=== PATIENT | female | born 1960 | race Caucasian/White ===

== ENCOUNTER 2016-10-15 20:59 | Day surgery (SDCO) | payer OTHER ==
[~2016-10-15] VITALS: Ht 157.5 cm; Wt 70.8 kg
[2016-10-15 21:39] LABS: BASOPHIL 0.7 % (0-2); HCT 38.6 % (37.0-47.0); HGB 13.2 g/dl (12.5-16.0); LYMPHOCYTE 40.6 % (15-48); MCH 31.1 pg (25.0-31.0); MCHC 34.2 g/dL (32.0-36.0); MCV 90.8 fL (78.0-100.0); MONOCYTE 8.5 % (0-12); MPV 8.5 fL (6.0-9.5); NEUTROPHIL 47.2 % (41-80); PLT 352 K/uL (150-400); RBC 4.25 M/uL (4.20-5.40); RDW 13.4 % (11.5-14.0); WBC 9.5 K/uL (4.0-10.5)
[2016-10-15 21:47] LABS: INR 0.94 (0.9-1.2); PROTHROMBIN TIME 12.2 SECONDS (11.7-14.0); PTT 28.3 SECONDS (23.2-31.4)
[2016-10-15 21:58] LABS: ALBUMIN 4.3 g/dL (3.5-5.0); BILIRUBIN - TOTAL 0.2 mg/dL (0.1-1.0); CKMB 1.08 ng/mL (0.97-4.94); CREATININE 0.6 mg/dL (0.5-1.0); GLOBULIN (CALCULATION) 3.3 g/dL (2.2-4.2); MAGNESIUM 2.18 mg/dL (1.40-2.10); MYOGLOBIN 21 ng/mL (26-65); POTASSIUM 3.6 mmol/L (3.5-5.1); PRO-BNP 46 pg/mL (0-125); TOTAL PROTEIN 7.6 g/dL (6.4-8.3); TROPONIN T < 0.010 ng/mL
[2016-10-15 22:16] LABS: BILIRUBIN NEGATIVE (NEGATIVE); BLOOD NEGATIVE Ery/uL (NEGATIVE); CLARITY CLEAR (CLEAR); COLOR STRAW (YELLOW); GLUCOSE (U) NORMAL (NORMAL); KETONE (U) NEGATIVE (NEGATIVE); LEUKOCYTES NEGATIVE Leu/uL (NEGATIVE); NITRITE NEGATIVE (NEGATIVE); PROTEIN NEGATIVE (NEGATIVE); SPECIFIC GRAVITY <=1.005 (1.001-1.030); UROBILINOGEN 0.2 mg/dL (0.2-1.0); pH 6.5 (5.0-9.0)
[2016-10-15 22:34] LABS: FT4 (FREE T4) 0.834 ng/dL (0.93-1.70); TSH (THYROID STIM HORMONE) 2.41 uIU/mL (0.270-4.200)
[2016-10-16 03:35] LABS: BASOPHIL 0.5 % (0-2); EOSINOPHIL 4.7 % (0-5); HCT 34.1 % (37.0-47.0); HGB 11.5 g/dl (12.5-16.0); LYMPHOCYTE 53.8 % (15-48); MCH 31.3 pg (25.0-31.0); MCHC 33.7 g/dL (32.0-36.0); MCV 92.7 fL (78.0-100.0); MONOCYTE 7.2 % (0-12); MPV 8.1 fL (6.0-9.5); NEUTROPHIL 33.8 % (41-80); PLT 303 K/uL (150-400); RBC 3.68 M/uL (4.20-5.40); RDW 13.6 % (11.5-14.0); WBC 9.6 K/uL (4.0-10.5)
[2016-10-16 03:54] LABS: ALBUMIN 3.8 g/dL (3.5-5.0); BILIRUBIN - TOTAL 0.2 mg/dL (0.1-1.0); CREATININE 0.6 mg/dL (0.5-1.0); GLOBULIN (CALCULATION) 2.8 g/dL (2.2-4.2); POTASSIUM 3.8 mmol/L (3.5-5.1); TOTAL PROTEIN 6.6 g/dL (6.4-8.3)
--- NOTE | 2016-10-16 08:15 | NUR ---
REPORT GIVEN TO DONTAE AT [facility] CADENCE ANALYST. 0830 [facility] HERE;RPT GIVEN TO PROTECTION MANAGER;PT TRANSFERRED FROM BED TO STRETCHER W/O INCIDENT;PT TRANSFERRED AT THIS TIME
--- NOTE | 2016-10-16 16:13 | NUR ---
10/16/16 Areferral for a social work assessment was received following patient's transfer to another hospital.
== END 2016-10-16 08:48 | disposition other institution (70) ==
LOC: FER 20:59 → FTCU 22:35
PROVIDERS: Emergency Medicine Emergency Medical Services; ADMIT Internal Medicine
DX: R07.9 Chest pain, unspecified (principal); I10 Essential (primary) hypertension; G89.29 Other chronic pain; G62.9 Polyneuropathy, unspecified; F41.1 Generalized anxiety disorder; K21.9 Gastro-esophageal reflux disease without esophagitis; F17.210 Nicotine dependence, cigarettes, uncomplicated; Z90.710 Acquired absence of both cervix and uterus; Z98.890 Other specified postprocedural states; Z88.5 Allergy status to narcotic agent; Z88.6 Allergy status to analgesic agent; Z79.818 Long term (current) use of other agents affecting estrogen receptors and estrogen levels; Z79.899 Other long term (current) drug therapy
CPT/HCPCS: 36415; 71010; 80053; 80061; 81003; 82550; 82553; 83036; 83735; 83874; 83880; 84439; 84443; 84484; 85025; 85610; 85730; 93005; 96372; G0378; J2270; J2405

== ENCOUNTER 2020-07-24 18:12 | Emergency (ER) | payer OTHER ==
[2020-07-24 19:59] LABS: BASOPHIL 0.7 % (0-2); EOSINOPHIL 4.1 % (0-5); HCT 41.4 % (37.0-47.0); HGB 13.3 g/dl (12.5-16.0); LYMPHOCYTE 36.2 % (15-48); MCH 30.5 pg (25.0-31.0); MCHC 32.1 g/dL (32.0-36.0); MONOCYTE 6.7 % (0-12); MPV 9.1 fL (6.0-9.5); NEUTROPHIL 51.9 % (41-80); NRBC 0; PLT 358 K/uL (150-400); RBC 4.36 M/uL (4.20-5.40); RDW 13.7 % (11.5-14.0)
[2020-07-24 20:13] LABS: ALBUMIN 3.5 g/dL (3.4-5.0); BILIRUBIN - TOTAL 0.2 mg/dL (0.2-1.0); BUN/CREAT RATIO (CALC) 20.3 RATIO; CREATININE 0.59 mg/dL (0.51-0.95); GLOBULIN (CALCULATION) 4.3 g/dL; TOTAL PROTEIN 7.8 g/dL (6.4-8.2)
[2020-07-24] MEDS ORDERED: CLEOCIN300 MG PO (22:00)
== END 2020-07-24 22:49 | disposition home or self-care (01) ==
LOC: FER 18:12
PROVIDERS: Emergency Medicine Emergency Medical Services
DX: M79.652 Pain in left thigh (principal); I10 Essential (primary) hypertension; F17.210 Nicotine dependence, cigarettes, uncomplicated; Z85.828 Personal history of other malignant neoplasm of skin; Z88.5 Allergy status to narcotic agent; Z88.6 Allergy status to analgesic agent
CPT/HCPCS: 36415; 80053; 85025; 86140; 99283; J1885; J2270; J2405

== ENCOUNTER 2020-11-28 18:53 | Emergency (ER) | payer OTHER ==
[~2020-11-28 18:53] MED LIST: CLEOCIN300 MG PO
[2020-11-28 21:13] LABS: HCT 40.3 % (37.0-47.0); HGB 12.9 g/dl (12.5-16.0); LYMPHOCYTE 40.7 % (15-48); MCV 93.7 fL (78.0-100.0); MONOCYTE 6.5 % (0-12); MPV 8.7 fL (6.0-9.5); NEUTROPHIL 45.4 % (41-80); NRBC 0; PLT 343 K/uL (150-400); RDW 13.7 % (11.5-14.0); WBC 9.6 K/uL (4.0-10.5)
[2020-11-28 21:17] LABS: INR 1.06 (0.9-1.2); PROTHROMBIN TIME 13.2 SECONDS (11.8-13.4); PTT 28.8 SECONDS (24.4-34.7)
[2020-11-28 21:32] LABS: ALBUMIN 3.9 g/dL (3.4-5.0); BILIRUBIN - TOTAL 0.2 mg/dL (0.2-1.0); BUN/CREAT RATIO (CALC) 17.9 RATIO; CREATININE 0.67 mg/dL (0.51-0.95); GLOBULIN (CALCULATION) 4.3 g/dL; MAGNESIUM 2.5 mg/dL (1.8-2.4); POTASSIUM 3.5 mmol/L (3.5-5.1); PRO-BNP 27 pg/mL (<125); TOTAL PROTEIN 8.2 g/dL (6.4-8.2)
[2020-11-28 22:20] LABS: BILIRUBIN NEGATIVE (NEGATIVE); BLOOD NEGATIVE Ery/uL (NEGATIVE); CLARITY CLEAR (CLEAR); COLOR YELLOW (YELLOW); GLUCOSE (U) NORMAL (NORMAL); LEUKOCYTES NEGATIVE Leu/uL (NEGATIVE); NITRITE NEGATIVE (NEGATIVE); PROTEIN NEGATIVE (NEGATIVE); SPECIFIC GRAVITY <=1.005 (1.001-1.030); UROBILINOGEN 0.2 mg/dL (0.2-1.0)
[2020-11-28] MEDS ORDERED: NORCO 5-325 TA1 EACH PO (23:57)
[2020-11-28] MEDS ORDERED: BACTROBAN NASAL1 GM TOP (23:57)
[2020-11-28] MEDS ORDERED: ZANAFLEX2 MG PO (23:59)
== END 2020-11-29 00:10 | disposition home or self-care (01) ==
LOC: FER 18:53
PROVIDERS: Emergency Medicine
DX: R07.89 Other chest pain (principal); S60.561A Insect bite (nonvenomous) of right hand, initial encounter; I51.9 Heart disease, unspecified; F17.200 Nicotine dependence, unspecified, uncomplicated; Z98.890 Other specified postprocedural states; W57.XXXA Bitten or stung by nonvenomous insect and other nonvenomous arthropods, initial encounter; Z79.899 Other long term (current) drug therapy
CPT/HCPCS: 36415; 71045; 80053; 81003; 83690; 83735; 83880; 84145; 84484; 85025; 85379; 85610; 85730; 93005; J1170; J2405; J7030

== ENCOUNTER 2020-12-30 21:19 | Inpatient (IN) | payer OTHER ==
[~2020-12-30] VITALS: Ht 157.5 cm; Wt 62.1 kg
[~2020-12-30 21:19] MED LIST changes: +BACTROBAN NASAL1 GM TOP; +NORCO 5-325 TA1 EACH PO; +ZANAFLEX2 MG PO
[2020-12-30 23:38] LABS: BASOPHIL 0.2 % (0-2); EOSINOPHIL 0 % (0-5); HCT 44.3 % (37.0-47.0); HGB 14.2 g/dl (12.5-16.0); LYMPHOCYTE 17.7 % (15-48); MCH 29.8 pg (25.0-31.0); MCHC 32.1 g/dL (32.0-36.0); MCV 92.9 fL (78.0-100.0); MONOCYTE 6.7 % (0-12); MPV 9.5 fL (6.0-9.5); NEUTROPHIL 74.6 % (41-80); NRBC 0.2; PLT 316 K/uL (150-400); RBC 4.77 M/uL (4.20-5.40); RDW 15.1 % (11.5-14.0); WBC 9.3 K/uL (4.0-10.5)
[2020-12-31 00:07] LABS: PRO-BNP 162 pg/mL (<125)
[2020-12-31 00:15] LABS: LACTIC ACID 1.6 mmol/L (0.4-1.9)
[2020-12-31 00:16] LABS: ALBUMIN 2.6 g/dL (3.4-5.0); ALKALINE PHOSHATASE 103 U/L (46-116); ALT 74 U/L (14-59); AST 268 U/L (15-37); BILIRUBIN - TOTAL 0.4 mg/dL (0.2-1.0); BUN 37 mg/dL (7-18); BUN/CREAT RATIO (CALC) 30.8 RATIO; C-REACTIVE PROTEIN >18.00 mg/dL (<=0.90); CHLORIDE 103 mmol/L (98-107); CO2 (BICARBONATE) 29 mmol/L (21-32); GLOBULIN (CALCULATION) 5.4 g/dL; GLUCOSE 127 mg/dL (74-106); LDH 1145 U/L (81-234); MAGNESIUM 2.9 mg/dL (1.8-2.4); POTASSIUM 3.6 mmol/L (3.5-5.1)
[2020-12-31 02:40] LABS: BILIRUBIN NEGATIVE (NEGATIVE); BLOOD 2+ Ery/uL (NEGATIVE); CLARITY HAZY (CLEAR); COLOR YELLOW (YELLOW); GLUCOSE (U) NORMAL (NORMAL); LEUKOCYTES NEGATIVE Leu/uL (NEGATIVE); NITRITE NEGATIVE (NEGATIVE); PROTEIN 1+ mg/dL (NEGATIVE); UROBILINOGEN 0.2 mg/dL (0.2-1.0)
[2020-12-31 02:46] LABS: AMORPHOUS URATES CRYSTALS TRACE; BACTERIA 1+
[2020-12-31 06:01] LABS: BUN/CREAT RATIO (CALC) 33.7 RATIO; CREATININE 0.95 mg/dL (0.51-0.95); MAGNESIUM 2.8 mg/dL (1.8-2.4); PHOSPHORUS 2.8 mg/dL (2.6-4.7)
[2020-12-31] MEDS ORDERED: GABAPENTIN800 MG PO (17:36)
[2020-12-31] MEDS ORDERED: NORTRIPTYLINE H75 MG PO (17:37)
[2020-12-31] MEDS ORDERED: CELEXA20 MG PO (17:37)
[2020-12-31] MEDS ORDERED: HYDROCHLOROTH12.5 MG PO (17:38)
[2020-12-31] MEDS ORDERED: ABILIFY10 MG PO (17:38)
[2020-12-31] MEDS ORDERED: DILTIAZEM 12HR60 MG PO (17:39)
[2020-12-31] MEDS ORDERED: CLONAZEPAM 1MG T1 MG PO (17:40)
[2020-12-31] MEDS ORDERED: BENTYL10 MG PO (17:41)
[2020-12-31] MEDS ORDERED: HYDROCODON-ACE1 EAC2 PO (17:41)
[2020-12-31] MEDS ORDERED: AMITRIPTYLINE H50 MG PO (17:42)
[2021-01-01 04:06] LABS: BASOPHIL 0.3 % (0-2); EOSINOPHIL 0 % (0-5); HCT 37.4 % (37.0-47.0); HGB 11.8 g/dl (12.5-16.0); LYMPHOCYTE 16.7 % (15-48); MCH 29.8 pg (25.0-31.0); MCHC 31.6 g/dL (32.0-36.0); MCV 94.4 fL (78.0-100.0); MONOCYTE 4.7 % (0-12); MPV 9.7 fL (6.0-9.5); NEUTROPHIL 76.7 % (41-80); NRBC 0.6; PLT 325 K/uL (150-400); RBC 3.96 M/uL (4.20-5.40); RDW 15.5 % (11.5-14.0); WBC 10.9 K/uL (4.0-10.5)
[2021-01-01 04:26] LABS: BUN/CREAT RATIO (CALC) 42.5 RATIO; C-REACTIVE PROTEIN 11.7 mg/dL (<=0.90); CREATININE 0.73 mg/dL (0.51-0.95); POTASSIUM 3.3 mmol/L (3.5-5.1)
[2021-01-01 04:30] LABS: PRO-BNP 690 pg/mL (<125)
[2021-01-05 06:42] LABS: BASOPHIL 0.2 % (0-2); EOSINOPHIL 0 % (0-5); HGB 11.3 g/dl (12.5-16.0); LYMPHOCYTE 8.2 % (15-48); MCH 29.7 pg (25.0-31.0); MCHC 31.4 g/dL (32.0-36.0); MCV 94.7 fL (78.0-100.0); MONOCYTE 4.9 % (0-12); NEUTROPHIL 84.6 % (41-80); NRBC 0; PLT 342 K/uL (150-400); RDW 15.2 % (11.5-14.0); WBC 11.8 K/uL (4.0-10.5)
[2021-01-05 07:43] LABS: ALBUMIN 2.2 g/dL (3.4-5.0); BILIRUBIN - TOTAL 0.3 mg/dL (0.2-1.0); BUN/CREAT RATIO (CALC) 65.3 RATIO; C-REACTIVE PROTEIN 3.9 mg/dL (<=0.90); CREATININE 0.49 mg/dL (0.51-0.95); GLOBULIN (CALCULATION) 4.2 g/dL; MAGNESIUM 2.7 mg/dL (1.8-2.4); POTASSIUM 3.9 mmol/L (3.5-5.1); TOTAL PROTEIN 6.4 g/dL (6.4-8.2)
[2021-01-06 09:33] LABS: HCT 39.3 % (37.0-47.0); HGB 12.2 g/dl (12.5-16.0); MCH 29.7 pg (25.0-31.0); MCV 95.6 fL (78.0-100.0); MPV 9.9 fL (6.0-9.5); RBC 4.11 M/uL (4.20-5.40); RDW 14.9 % (11.5-14.0); WBC 11.5 K/uL (4.0-10.5)
[2021-01-06 09:50] LABS: BUN/CREAT RATIO (CALC) 57.8 RATIO; CREATININE 0.45 mg/dL (0.51-0.95); POTASSIUM 3.9 mmol/L (3.5-5.1)
[2021-01-06 16:15] LABS: BILIRUBIN NEGATIVE (NEGATIVE); BLOOD 3+ Ery/uL (NEGATIVE); CLARITY HAZY (CLEAR); COLOR YELLOW (YELLOW); GLUCOSE (U) NORMAL (NORMAL); LEUKOCYTES 1+ Leu/uL (NEGATIVE); NITRITE POSITIVE (NEGATIVE); PROTEIN 1+ mg/dL (NEGATIVE); SPECIFIC GRAVITY 1.025 (1.001-1.030); UROBILINOGEN 0.2 mg/dL (0.2-1.0)
[2021-01-06 16:31] LABS: BACTERIA 2+; URINARY RBC TNTC; URINARY WBC TNTC
[2021-01-07 06:33] LABS: BASOPHIL 0 % (0-2); EOSINOPHIL 0 % (0-5); HGB 10.7 g/dl (12.5-16.0); LYMPHOCYTE 10.8 % (15-48); MCH 29.7 pg (25.0-31.0); MCHC 31.5 g/dL (32.0-36.0); MCV 94.4 fL (78.0-100.0); MONOCYTE 3.4 % (0-12); MPV 10.2 fL (6.0-9.5); NEUTROPHIL 84.4 % (41-80); NRBC 0; PLT 356 K/uL (150-400); RDW 14.6 % (11.5-14.0); WBC 7.7 K/uL (4.0-10.5)
[2021-01-07 07:26] LABS: BUN/CREAT RATIO (CALC) 53.8 RATIO; C-REACTIVE PROTEIN 3.6 mg/dL (<=0.90); CREATININE 0.39 mg/dL (0.51-0.95); MAGNESIUM 2.4 mg/dL (1.8-2.4)
[2021-01-08 04:34] LABS: BASOPHIL 0.4 % (0-2); HCT 39.2 % (37.0-47.0); HGB 12.6 g/dl (12.5-16.0); LYMPHOCYTE 12.7 % (15-48); MCH 29.8 pg (25.0-31.0); MCHC 32.1 g/dL (32.0-36.0); MCV 92.7 fL (78.0-100.0); MONOCYTE 4.6 % (0-12); MPV 10.6 fL (6.0-9.5); PLT 387 K/uL (150-400); RBC 4.23 M/uL (4.20-5.40); RDW 13.9 % (11.5-14.0); WBC 8.42 K/uL (4.0-10.5)
[2021-01-08 04:41] LABS: NEUTROPHIL 80.5 % (41-80)
[2021-01-08 04:56] LABS: BUN/CREAT RATIO (CALC) 54.1 RATIO; CREATININE 0.37 mg/dL (0.51-0.95); POTASSIUM 4.4 mmol/L (3.5-5.1)
[2021-01-09 03:59] LABS: BASOPHIL 0.1 % (0-2); HGB 11.7 g/dl (12.5-16.0); LYMPHOCYTE 9.7 % (15-48); MCH 29.8 pg (25.0-31.0); MCHC 32.5 g/dL (32.0-36.0); MCV 91.6 fL (78.0-100.0); NEUTROPHIL 83.5 % (41-80); PLT 326 K/uL (150-400); RBC 3.93 M/uL (4.20-5.40); RDW 13.1 % (11.5-14.0); WBC 8.88 K/uL (4.0-10.5)
[2021-01-09 04:42] LABS: BUN/CREAT RATIO (CALC) 37.2 RATIO; C-REACTIVE PROTEIN 1.3 mg/dL (<=0.90); CREATININE 0.43 mg/dL (0.51-0.95); MAGNESIUM 2.1 mg/dL (1.8-2.4); POTASSIUM 3.9 mmol/L (3.5-5.1)
[2021-01-11] MEDS ORDERED: MEDROL 4MG DOSEP4 MG PO (10:39)
== END 2021-01-11 12:30 | disposition home or self-care (01) | DRG 177 ==
LOC: FER 21:19 → FTCU 12-31 10:32
PROVIDERS: Emergency Medicine; Internal Medicine; ADMIT Allergy & Immunology Allergy
PROC: 8E0ZXY6 Isolation (ICD-10-PCS; principal; 2020-12-31)
PROC: XW033E5 Introduction of Remdesivir Anti-infective into Peripheral Vein, Percutaneous Approach, New Technology Group 5 (ICD-10-PCS; 2020-12-31)
PROC: XW0DXM6 Introduction of Baricitinib into Mouth and Pharynx, External Approach, New Technology Group 6 (ICD-10-PCS; 2020-12-31)
PROC: 5A0955A Assistance with Respiratory Ventilation, Greater than 96 Consecutive Hours, High Flow/Velocity Cannula (ICD-10-PCS; 2020-12-31)
PROC: 05HY33Z Insertion of Infusion Device into Upper Vein, Percutaneous Approach (ICD-10-PCS; 2021-01-09)
DX: U07.1 COVID-19 (principal); J12.82 Pneumonia due to coronavirus disease 2019; T83.518A Infection and inflammatory reaction due to other urinary catheter, initial encounter; N39.0 Urinary tract infection, site not specified; J96.01 Acute respiratory failure with hypoxia; G93.41 Metabolic encephalopathy; I10 Essential (primary) hypertension; F17.200 Nicotine dependence, unspecified, uncomplicated; I25.10 Atherosclerotic heart disease of native coronary artery without angina pectoris; F41.1 Generalized anxiety disorder; G89.29 Other chronic pain; F32.9 Major depressive disorder, single episode, unspecified; G62.9 Polyneuropathy, unspecified; Z90.710 Acquired absence of both cervix and uterus; Z78.1 Physical restraint status; Z88.5 Allergy status to narcotic agent; Z88.6 Allergy status to analgesic agent; Z98.890 Other specified postprocedural states; Z88.1 Allergy status to other antibiotic agents; Y84.6 Urinary catheterization as the cause of abnormal reaction of the patient, or of later complication, without mention of misadventure at the time of the procedure
CPT/HCPCS: 36415; 36600; 70450; 71045; 71275; 80048; 80053; 81001; 82728; 82803; 83605; 83615; 83735; 83880; 84100; 84145; 84443; 84484; 85025; 86140; 87040; 87076; 87088; 87186; 93005; 94010; 94640; 94760; 94762; C1751; C9399; J0456; J0696; J1100; J1642; J1650; J2060; J2270; J2405; J2543; J2930; J3370; J3480; J3486; J7030; J7050; J7070; J7120; J8540; Q9967; U0002

== ENCOUNTER 2021-02-19 17:50 | Emergency (ER) | payer OTHER ==
[~2021-02-19 17:50] MED LIST changes: +ABILIFY10 MG PO; +AMITRIPTYLINE H50 MG PO; +BENTYL10 MG PO; +CELEXA20 MG PO; +CLONAZEPAM 1MG T1 MG PO; +DILTIAZEM 12HR60 MG PO; +GABAPENTIN800 MG PO; +HYDROCHLOROTH12.5 MG PO; +HYDROCODON-ACE1 EAC2 PO; +MEDROL 4MG DOSEP4 MG PO; +NORTRIPTYLINE H75 MG PO
[2021-02-19 19:10] LABS: BASOPHIL 0.9 % (0-2); EOSINOPHIL 1.9 % (0-5); HCT 35.1 % (37.0-47.0); HGB 11.1 g/dl (12.5-16.0); LYMPHOCYTE 49.7 % (15-48); MCH 29.9 pg (25.0-31.0); MCHC 31.6 g/dL (32.0-36.0); MCV 94.6 fL (78.0-100.0); MONOCYTE 7.7 % (0-12); MPV 8.9 fL (6.0-9.5); NRBC 0; PLT 253 K/uL (150-400); RBC 3.71 M/uL (4.20-5.40); RDW 14.8 % (11.5-14.0); WBC 10.3 K/uL (4.0-10.5)
[2021-02-19 19:12] LABS: NEUTROPHIL 38.4 % (41-80)
[2021-02-19 19:20] LABS: BUN/CREAT RATIO (CALC) 26.1 RATIO; CREATININE 0.46 mg/dL (0.51-0.95); POTASSIUM 3.9 mmol/L (3.5-5.1)
== END 2021-02-20 00:21 | disposition home or self-care (01) ==
LOC: FER 17:50
PROVIDERS: Nurse Practitioner Family
DX: R07.89 Other chest pain (principal); I10 Essential (primary) hypertension
CPT/HCPCS: 36415; 80048; 84443; 84484; 85025; 93005; J2270; J7030

== ENCOUNTER 2021-07-15 17:43 | Emergency (ER) | payer OTHER ==
[2021-07-15 18:22] LABS: BASOPHIL 0.6 % (0-2); EOSINOPHIL 1.8 % (0-5); HCT 36.5 % (37.0-47.0); MCH 30.1 pg (25.0-31.0); MCHC 32.9 g/dL (32.0-36.0); MCV 91.5 fL (78.0-100.0); MONOCYTE 6.8 % (0-12); MPV 8.5 fL (6.0-9.5); NEUTROPHIL 66.2 % (41-80); NRBC 0; PLT 332 K/uL (150-400); RBC 3.99 M/uL (4.20-5.40); WBC 11.8 K/uL (4.0-10.5)
[2021-07-15 18:39] LABS: ALBUMIN 3.8 g/dL (3.4-5.0); BILIRUBIN - TOTAL 0.2 mg/dL (0.2-1.0); BUN/CREAT RATIO (CALC) 23.7 RATIO; CREATININE 0.59 mg/dL (0.51-0.95); GLOBULIN (CALCULATION) 4.3 g/dL; POTASSIUM 3.8 mmol/L (3.5-5.1); TOTAL PROTEIN 8.1 g/dL (6.4-8.2)
== END 2021-07-15 19:12 | disposition home or self-care (01) ==
LOC: FER 17:43
PROVIDERS: Emergency Medicine
DX: R06.00 Dyspnea, unspecified (principal); F41.9 Anxiety disorder, unspecified; J44.9 Chronic obstructive pulmonary disease, unspecified; Z88.5 Allergy status to narcotic agent; Z87.891 Personal history of nicotine dependence; Z86.16 Personal history of COVID-19
CPT/HCPCS: 36415; 71046; 80053; 84484; 85025; 85379; 93005